=== PATIENT | male | born 1975 | race Caucasian/White ===

== ENCOUNTER 2019-01-23 08:23 | Emergency (ER) | payer OTHER ==
[~2019-01-23] VITALS: Ht 185.4 cm; Wt 133.4 kg
[2019-01-23 08:31] VITALS: BP 158/93
--- NOTE | 2019-01-23 09:12 | NUR ---
PT AMBULATORY TO E08 FROM [facility] AT THIS TIME
== END 2019-01-23 10:34 | disposition home or self-care (01) ==
LOC: ED 10:30
DX: F41.1 Generalized anxiety disorder (principal); R06.4 Hyperventilation
CPT/HCPCS: 93005; 99284